=== PATIENT | male | born 1960 | race Caucasian/White ===

== ENCOUNTER 2021-05-11 13:21 | Inpatient (IN) | payer OTHER ==
[2021-05-11 17:02] VITALS: BMI 35.2
[2021-05-11] MEDS ORDERED: Sodium Chloride 0.9% 1,000 ML IV SCH ×4 (18:00→19:58)
[2021-05-11] MEDS ORDERED: Ondansetron PF 4 MG/2 ML Vial IVP PRN ×2 (18:00→18:01)
[2021-05-11] MEDS ORDERED: Ondansetron ODT 4 MG TAB SL PRN (18:00)
[2021-05-11] MEDS ORDERED: Acetaminophen 325 MG TAB PO PRN (18:01)
[2021-05-11] MEDS ORDERED: Morphine 2 MG/ML VIAL SLOW IVP PRN (18:04)
[2021-05-11] MEDS ORDERED: Morphine 4 MG/ML VIAL SLOW IVP PRN (18:04)
[2021-05-11] MEDS ORDERED: Nicotine 14 MG PATCH TD PRN (18:14)
[2021-05-11] MEDS ORDERED: VANCOMYCIN 1.75 GM/350 ML BAG 1.75 GM in Premix Bag 1 BAG IVPB SCH (21:00)
[2021-05-11] MEDS: Piperacillin/Tazobactam 3.375 GM in Sodium Chloride 0.9% 100 ML IVPB SCH (21:43)
[2021-05-11] MEDS: Valsartan 80 MG TAB PO SCH (21:43)
[2021-05-11] MEDS: Metoprolol Tartrate 50 MG TAB PO SCH (21:43)
[2021-05-11] MEDS ORDERED: Piperacillin/Tazobactam 3.375 GM in Sodium Chloride 0.9% 100 ML IVPB SCH (23:59)
[2021-05-12] MEDS: Piperacillin/Tazobactam 3.375 GM in Sodium Chloride 0.9% 100 ML IVPB SCH (06:33)
[2021-05-12] MEDS: Metoprolol Tartrate 50 MG TAB PO SCH ×2 (06:33→20:42)
[2021-05-12] MEDS ORDERED: Sodium Chloride 0.9% 1,000 ML IV SCH ×2 (08:15→08:30)
[2021-05-12] MEDS ORDERED: hydrALAZINE 20 MG/ML VIAL SLOW IVP PRN ×2 (08:36→14:52)
[2021-05-12] MEDS: Valsartan 80 MG TAB PO SCH (08:38)
[2021-05-12] MEDS ORDERED: Metoprolol Tartrate 5 MG/5 ML VIAL IVP PRN (08:39)
[2021-05-12] MEDS: hydrALAZINE 25 MG TAB PO SCH ×4 (08:44→20:42)
[2021-05-12 09:05] LABS: #Eosinphils 0.3 thou/uL (0.0-0.7); #Lymphocytes 1.1 thou/uL (1.20-3.40); #Monocytes 1.4 thou/uL (0.11-0.59); #Neutrophils 11.5 thou/uL (1.40-6.50); %Basophils 0.2 % (0.0-1.0); %Eosinophils 1.9 % (0.0-10.0); %Lymphocytes 7.3 % (21.0-51.0); %Neutrophils 80.6 % (42.0-75.0); Hemoglobin 13.9 g/dL (14.0-18.0); Mean Corpuscular HGB CONC 34.4 g/dL (32.0-36.0); Mean Corpuscular Hemoglobin 30.9 pg (27.0-31.0); Mean Corpuscular Volume 89.7 fL (78.0-98.0); Mean Platelet Volume 6.6 fL (7.4-10.4); Platelet Count 281 thou/uL (130-400); RBC Distribution Width 12.2 % (11.5-14.5); Red Blood Cell (RBC) Count 4.49 mill/uL (4.70-6.10); White Blood Cell (WBC) Count 14.3 thou/uL (4.8-10.8)
[2021-05-12 09:26] LABS: ALT (SGPT) 50 U/L (8-55); AST (SGOT) 35 U/L (5-34); Albumin 3.8 g/dL (3.4-4.8); Alkaline Phosphatase 59 U/L (40-110); Anion Gap 11 mmol/L (10-20); BUN (Urea Nitrogen) 11 mg/dL (8.4-25.7); Bilirubin, Total 1.1 mg/dL (0.2-1.2); Calc. Creatinine Clearance 160 mL/min (70-130); Calcium 9.2 mg/dL (7.8-10.44); Carbon Dioxide 23 mmol/L (23-31); Chloride 106 mmol/L (98-107); Globulin 2.8 g/dL (2.4-3.5); Glucose 99 mg/dL (80-115); Lipase 322 U/L (8-78); Potassium 3.8 mmol/L (3.5-5.1); Protein, Total 6.6 g/dL (5.8-8.1); Sodium 136 mmol/L (136-145)
[2021-05-12] MEDS ORDERED: Bupivacaine PF 0.5% 30 ML VIAL ONE (12:06)
[2021-05-12] MEDS ORDERED: Lidocaine 1% w/Epinephrine 1:100K 20 ML VIAL ONE (12:07)
[2021-05-12] MEDS ORDERED: Ketorolac Tromethamine 30 MG/ML VIAL ONE (12:36)
[2021-05-12] MEDS ORDERED: Ketamine 50 MG/ML (10ML VIAL) ONE (13:32)
[2021-05-12] MEDS ORDERED: Fentanyl 100 MCG/2 ML VIAL ONE (13:32)
[2021-05-12] MEDS ORDERED: Midazolam HCl 2 mg/2 ml Vial ONE (13:32)
[2021-05-12] MEDS ORDERED: Glycopyrrolate 0.2 MG/ML 5 ML SYRINGE ONE (13:41)
[2021-05-12] MEDS ORDERED: Ondansetron PF 4 MG/2 ML Vial ONE (13:41)
[2021-05-12] MEDS ORDERED: Dexamethasone 20 MG/5 ML VIAL ONE (13:41)
[2021-05-12] MEDS ORDERED: Rocuronium Bromide 10 MG/ML (10ML VIAL) ONE (13:41)
[2021-05-12] MEDS ORDERED: Lidocaine 1% PF 5 ML VIAL ONE (13:41)
[2021-05-12] MEDS ORDERED: Succinylcholine 200 MG/10 ml SYRINGE FS ONE (13:41)
[2021-05-12] MEDS ORDERED: PHENYLEPHRINE-NS 100 MCG/ML 10 ML SYRINGE ONE (13:41)
[2021-05-12] MEDS ORDERED: ePHEDrine 50 MG/ML VIAL ONE (13:41)
[2021-05-12] MEDS ORDERED: PROPOFOL 200 MG/20 ML VIAL ONE (13:41)
[2021-05-12] MEDS ORDERED: Piperacillin/Tazobactam 3.375 GM in Sodium Chloride 0.9% 100 ML IVPB SCH (14:00)
[2021-05-12] MEDS ORDERED: SUGAMMADEX SODIUM 200 MG/2 ML VIAL ONE (14:37)
[2021-05-12] MEDS ORDERED: Ibuprofen 600 MG TAB PO PRN (14:44)
[2021-05-12] MEDS ORDERED: traMADol HCl 50 MG TAB PO PRN (14:44)
[2021-05-12] MEDS ORDERED: hydrALAZINE 20 MG/ML VIAL ONE (14:52)
[2021-05-12] MEDS ORDERED: Meperidine HCl/PF 25 MG/ML VIAL SLOW IVP PRN (14:54)
[2021-05-12] MEDS ORDERED: Promethazine HCl 25 MG/ML VIAL IM PRN (14:54)
[2021-05-12] MEDS ORDERED: Promethazine HCl 25 MG/ML VIAL IVPB PRN (14:54)
[2021-05-12] MEDS ORDERED: Ondansetron HCl/PF 4 MG/2 ML Vial IVP PRN (14:54)
[2021-05-12] MEDS ORDERED: Morphine 4 MG/ML VIAL SLOW IVP PRN (15:17)
[2021-05-12] MEDS ORDERED: Morphine 2 MG/ML VIAL SLOW IVP PRN (15:18)
[2021-05-12] MEDS: Acetaminophen 500 MG TAB PO PRN (20:42)
[2021-05-13] MEDS: Acetaminophen 500 MG TAB PO PRN (03:38)
[2021-05-13 07:31] LABS: #Eosinphils 0.1 thou/uL (0.0-0.7); #Lymphocytes 1.2 thou/uL (1.20-3.40); #Monocytes 1.1 thou/uL (0.11-0.59); #Neutrophils 10.1 thou/uL (1.40-6.50); %Eosinophils 0.6 % (0.0-10.0); %Lymphocytes 9.9 % (21.0-51.0); %Monocytes 8.9 % (0.0-10.0); %Neutrophils 80.6 % (42.0-75.0); Hemoglobin 12.7 g/dL (14.0-18.0); Mean Corpuscular HGB CONC 34.2 g/dL (32.0-36.0); Mean Corpuscular Hemoglobin 30.9 pg (27.0-31.0); Mean Corpuscular Volume 90.3 fL (78.0-98.0); Mean Platelet Volume 6.9 fL (7.4-10.4); Platelet Count 272 thou/uL (130-400); RBC Distribution Width 12.2 % (11.5-14.5); White Blood Cell (WBC) Count 12.5 thou/uL (4.8-10.8)
[2021-05-13 07:53] LABS: ALT (SGPT) 51 U/L (8-55); AST (SGOT) 45 U/L (5-34); Albumin 3.8 g/dL (3.4-4.8); Alkaline Phosphatase 57 U/L (40-110); Anion Gap 13 mmol/L (10-20); BUN (Urea Nitrogen) 17 mg/dL (8.4-25.7); Bilirubin, Total 0.5 mg/dL (0.2-1.2); Calc. Creatinine Clearance 135 mL/min (70-130); Calcium 9.2 mg/dL (7.8-10.44); Carbon Dioxide 23 mmol/L (23-31); Chloride 106 mmol/L (98-107); Globulin 2.8 g/dL (2.4-3.5); Glucose 122 mg/dL (80-115); Lipase 74 U/L (8-78); Protein, Total 6.6 g/dL (5.8-8.1); Sodium 138 mmol/L (136-145)
[2021-05-13 08:15] VITALS: BP 156/81; TEMP 97.8
[2021-05-13] MEDS: Metoprolol Tartrate 50 MG TAB PO SCH (08:16)
[2021-05-13] MEDS: hydrALAZINE 25 MG TAB PO SCH (08:16)
[2021-05-13] MEDS ORDERED: Valsartan 80 MG TAB PO SCH (09:00)
[2021-05-13] MEDS ORDERED: Allopurinol 300 MG TAB PO SCH (09:00)
== END 2021-05-13 10:15 | disposition home or self-care (01) | DRG 417 ==
LOC: T4-A 16:43
PROVIDERS: ADMIT Family Medicine; ATTEND Family Medicine
PROC: 0FT44ZZ Resection of Gallbladder, Percutaneous Endoscopic Approach (ICD-10-PCS; principal; 2021-05-12)
PROC: BF131ZZ Fluoroscopy of Gallbladder and Bile Ducts using Low Osmolar Contrast (ICD-10-PCS; 2021-05-12)
DX: K80.10 Calculus of gallbladder with chronic cholecystitis without obstruction (principal); K85.10 Biliary acute pancreatitis without necrosis or infection; I10 Essential (primary) hypertension; E78.5 Hyperlipidemia, unspecified; T44.7X5A Adverse effect of beta-adrenoreceptor antagonists, initial encounter; R00.1 Bradycardia, unspecified; M10.9 Gout, unspecified; F17.220 Nicotine dependence, chewing tobacco, uncomplicated; Z20.822 Contact with and (suspected) exposure to COVID-19; Z79.899 Other long term (current) drug therapy; Z98.890 Other specified postprocedural states
CPT/HCPCS: 36415; 47532; 80053; 83690; 85025; 88304; J0360; J1100; J1610; J1885; J2250; J2270; J2405; J2543; J2704; J3010; J3490; S0020